=== PATIENT | male | born 1970 | race Caucasian/White ===

== ENCOUNTER 2017-07-17 04:08 | Emergency (ER) | payer SELFPAY ==
[~2017-07-17] VITALS: Ht 167.6 cm; Wt 68.0 kg
[2017-07-17 04:11] VITALS: BP 115/82
== END 2017-07-17 10:26 | disposition left against medical advice (07) ==
LOC: ER 04:21
DX: R11.2 Nausea with vomiting, unspecified (principal); Z53.21 Procedure and treatment not carried out due to patient leaving prior to being seen by health care provider